=== PATIENT | male | born 1960 | race African-American/Black ===

== ENCOUNTER 2017-08-07 06:53 | Emergency (ER) | payer OTHER ==
[2017-08-07 07:18] VITALS: BMI 16.9
[2017-08-07] MEDS ORDERED: NITROSTAT SL PRN (07:18)
--- NOTE | 2017-08-07 07:26 | DR.CP ---
HPI - Time Seen Time seen: 07:20 - PCP Primary Care Physician: NFD - Complaint Chief Complaint Doctor Comments: This 56 y/o male presented to the ED via custody of the police department with complaint of chest pain just prior to coming. He reports that the pain is sharp 10/10, non radiating, no diaphoresis and positive shortness of breath. He denies a history of cardiopulmonary disease ,negative history of hypertension or cigarette use. He admits to a history of dyspnea of six months. He has a history of kidney disease colostomy for thriry years. Chief Complaint:: PT. C/O CHEST PAIN THAT BEGAN AFTER HE ATE BREAKFAST THIS MORNING. PAIN HAS BEEN CONTINUOUS SINCE ONSET AND PT. DESCRIBES PAIN "IT FEELS LIKE MY CHEST IS GOING TO POP OPEN." PT. ALSO C/O SHORTNESS OF BREATH. PT. IS FROM THE [facility]. - Source History Provided: Patient, EMS, Other - Mode of Arrival Mode of Arrival: EMS - Timing Onset of Chief Complaint: 08/07/17 PMH - PMH Past Medical History: Yes Past Medical History: Renal Disease Past Surgical History: Yes Surgical History: Other Past Surgical History Comment: UROSTOMY - Family History History of Family Medical Conditions: No - Social History Does patient currently use any type of tobacco product: No Have you used tobacco products in the last 12 months: No Type of Tobacco Use: None Does any household member use tobacco: No Alcohol Use: None Do you use any recreational Drugs:: No Lives Where: [facility] - infectious screening In the last 2 months have you had wt loss of >10#?: NO Have you had fever, night sweats or hemotysis?: No Have you traveled outside the country in the last 6 months?: No Isolation: Standard ROS - Review of Systems Constitutional: negative: Diaphoresis Eyes: No Symptoms Reported ENTM: No Symptoms Reported, See HPI Respiratoy: No Symptoms Reported Cardiovascular: No Symptoms Reported Gastrointestinal/Abdominal: No Symptoms Reported Genitourinary: Other (colostomy) Neurological: No Symptoms Reported Musculoskeletal: No Symptoms Reported Integumentary: No Symptoms Reported Hematologic/Lymphatic: No Symptoms Reported Endocrine: No Symptoms Reported Psychiatric: No Symptoms Reported All Other Systems: Reviewed and Negative PE - Vitals Vitals: Temperature 97.5 F Pulse Rate [Apical] 87 Pulse Rate 107 Respiratory Rate 20 Blood Pressure [Right Arm] 141/87 Blood Pressure 149/95 O2 Sat by Pulse Oximetry 97 - General Limitations: No Limitations General Appearance: Alert, In No Apparent Distress - Head Head Exam: Normal Inspection, Atraumatic - Eyes Eye exam: Normal Appearance, PERRL, EOMI - ENT ENT Exam: Normal Exam - Chest Chest Inspection: Normal Inspection - Respiratory Respiratory Exam: Normal Lung Sounds Bilat Respiratory Exam: Bilateral Clear to Auscultation - Cardiovascular Cardiovascular Exam: Regular Rate Pulse: Normal, Radial, Femoral Edema: Normal - Abdominal Exam Abdominal Exam: Normal Inspection, Normal Bowel Sounds Abdominal Tenderness: negative: RUQ, RLQ (colostomy LLQ), LUQ, LLQ, Epigastrium , Suprapubic, Diffuse, Mild, Moderate, Severe, Other - Extremities Extremities Exam: Normal Inspection, Full ROM - Back Back Exam: Normal Inspection, Full ROM - Neurologic Neurological Exam: Alert, Oriented X3, CN II-XII Intact - Psychiatric Psychiatric Exam: Normal Affect, Normal Mood - Skin Skin Exam: Warm, Dry, Intact ROR - Labs Reviewed Result Diagrams: 08/07/17 07:30 08/07/17 07:30 Laboratory: WBC 5.5 X10^3/uL (3.6-10.0) 08/07/17 07:30 RBC 4.57 X10^6/uL (4.7-6.0) L 08/07/17 07:30 Hgb 13.0 g/dL (13.5-18.0) L 08/07/17 07:30 Hct 39.7 % (42.0-54.0) L 08/07/17 07:30 MCV 86.9 fL (80.0-100.0) 08/07/17 07:30 MCH 28.5 pg (27.0-34.0) 08/07/17 07:30 MCHC 32.8 g/dL (33.0-35.0) L 08/07/17 07:30 RDW 15.4 % (11.6-16.5) 08/07/17 07:30 Plt Count 176 X10^3/uL (150.0-450.0) 08/07/17 07:30 MPV 9.2 fL (7.4-11.0) 08/07/17 07:30 Neut % 55.7 % (42.0-75.0) 08/07/17 07:30 Lymph % 24.5 % (21.0-51.0) 08/07/17 07:30 Z[place]ata % 10.0 % (0.0-13.0) 08/07/17 07:30 Eos % 8.2 % (0.9-2.9) H 08/07/17 07:30 Baso % 1.6 % (0.2-1.0) H 08/07/17 07:30 Neut # 3.1 x10^3/uL (2.2-4.8) 08/07/17 07:30 Lymph # 1.4 X10^3/uL (1.3-2.9) 08/07/17 07:30 [place] # 0.6 x10^3/uL (0.3-0.8) 08/07/17 07:30 Eos # 0.5 x10^3/uL (0.0-0.2) H 08/07/17 07:30 Baso # 0.1 X10^3/uL (0.0-0.1) 08/07/17 07:30 Absolute Nucleated RBC 0.1 /100WBC 08/07/17 07:30 INR Target Range - 08/07/17 07:30 INR 1.08 (0.8-1.3) 08/07/17 07:30 PTT 29.3 SECONDS (22.9-36.5) 08/07/17 07:30 PTT Comment - 08/07/17 07:30 Sodium 140 mmol/L (136-145) 08/07/17 07:30 Corrected Sodium 140 mmol/L (136-145) 08/07/17 07:30 Potassium 4.7 mmol/L (3.5-5.1) 08/07/17 07:30 Chloride 111 mmol/L (98-107) H 08/07/17 07:30 Carbon Dioxide 16.4 mmol/L (21-32) L 08/07/17 07:30 BUN 59 mg/dL (7-18) H 08/07/17 07:30 Creatinine 2.99 mg/dL (0.70-1.30) H 08/07/17 07:30 Est GFR (MDRD) Af Amer 28 (>60) L 08/07/17 07:30 Est GFR (MDRD) Non-Af 23 (>60) L 08/07/17 07:30 Glucose 120 mg/dL (65-99) H 08/07/17 07:30 Calcium 8.6 mg/dL (8.5-10.1) 08/07/17 07:30 Corrected Calcium TNP 08/07/17 07:30 Magnesium 2.4 mg/dL (1.7-2.9) 08/07/17 07:30 Total Bilirubin 0.10 mg/dL (0.2-1.0) L 08/07/17 07:30 AST 19 Units/L (15-37) 08/07/17 07:30 ALT 20 Units/L (12-78) 08/07/17 07:30 Alkaline Phosphatase 166 Units/L (46-116) H 08/07/17 07:30 Creatine Kinase 56 Units/L (39-308) 08/07/17 07:30 CK-MB (CK-2) < 1.0 ng/mL (0-4.0) 08/07/17 07:30 CK/CKMB % Calc 1.8 % (<4) 08/07/17 07:30 Troponin I < 0.02 ng/mL (0-1.5) 08/07/17 07:30 B-Natriuretic Peptide 21.9 pg/mL (0-79) 08/07/17 07:30 Total Protein 8.3 g/dL (6.4-8.2) H 08/07/17 07:30 Albumin 3.6 g/dL (3.4-5.0) 08/07/17 07:30 Globulin 4.7 g/dL (2.5-4.5) H 08/07/17 07:30 Albumin/Globulin Ratio 0.8 Ratio (1.1-2.1) L 08/07/17 07:30 - XRAY XRAY Interpreted by: Radiologist (Chest: The heart is within normal limits in size. The kiran are normal. The lungs are well inflated and free of acute infiltrates. No pleural effusions are identified. There is a benign calcified granulomz in the left lower lobe. Impression: No acute findigns. Old granulomatous disease.) - Diagnosis Discharge Problem: Chest pain Qualifiers: Chest pain type: unspecified Qualified Code(s): R07.9 - Chest pain, unspecified Chronic renal failure Qualifiers: Chronic kidney disease stage: stage 2 (mild) Qualified Code(s): N18.2 - Chronic kidney disease, stage 2 (mild) - Discharge Plan Condition: Stable - Follow ups/Referrals Follow ups/Referrals: NFD,None [Primary Care Provider] - 3 days - Instructions
--- NOTE | 2017-08-07 07:34 | RAD ---
HISTORY: Chest pain Study: Chest AP portable Comparison: None Findings: The heart is within normal limits in size. The kiran are normal. The lungs are well inflated and free of acute infiltrates. No pleural effusions are identified. There is a benign calcified granuloma in t he left lower lobe. IMPRESSION: No acute findings Old granulomatous disease Reported By:
[2017-08-07 07:44] LABS: BASOPHILS # (AUTO) 0.1 X10^3/uL (0.0-0.1); BASOPHILS % (AUTO) 1.6 % (0.2-1.0); EOSINOPHILS # (AUTO) 0.5 x10^3/uL (0.0-0.2); EOSINOPHILS % (AUTO) 8.2 % (0.9-2.9); HEMATOCRIT 39.7 % (42.0-54.0); LYMPHOCYTES # (AUTO) 1.4 X10^3/uL (1.3-2.9); LYMPHOCYTES % (AUTO) 24.5 % (21.0-51.0); MEAN CORPUSCULAR HEMOGLOBIN 28.5 pg (27.0-34.0); MEAN CORPUSCULAR HGB CONC 32.8 g/dL (33.0-35.0); MEAN CORPUSCULAR VOLUME 86.9 fL (80.0-100.0); MEAN PLATELET VOLUME 9.2 fL (7.4-11.0); MONOCYTES # (AUTO) 0.6 x10^3/uL (0.3-0.8); NEUTROPHILS # (AUTO) 3.1 x10^3/uL (2.2-4.8); NEUTROPHILS % (AUTO) 55.7 % (42.0-75.0); PLATELET COUNT 176 X10^3/uL (150.0-450.0); RED BLOOD COUNT 4.57 X10^6/uL (4.7-6.0); RED CELL DISTRIBUTION WIDTH 15.4 % (11.6-16.5); WHITE BLOOD COUNT 5.5 X10^3/uL (3.6-10.0)
[2017-08-07 07:55] LABS: ALANINE AMINOTRANSFERASE 20 Units/L (12-78); ALBUMIN 3.6 g/dL (3.4-5.0); ALKALINE PHOSPHATASE 166 Units/L (46-116); ASPARTATE AMINO TRANSFERASE 19 Units/L (15-37); BLOOD UREA NITROGEN 59 mg/dL (7-18); CALCIUM 8.6 mg/dL (8.5-10.1); CARBON DIOXIDE 16.4 mmol/L (21-32); CHLORIDE 111 mmol/L (98-107); COR NA(FOR HYPERGLY) 140 mmol/L (136-145); CREATININE 2.99 mg/dL (0.70-1.30); MAGNESIUM 2.4 mg/dL (1.7-2.9); SODIUM 140 mmol/L (136-145); TOTAL PROTEIN 8.3 g/dL (6.4-8.2); eGFR BLACK RACES 28 (>60); eGFR NON BLACK RACES 23 (>60)
[2017-08-07] MEDS ORDERED: ASPIRIN PO SCH (08:00)
[2017-08-07 08:06] LABS: B-TYPE NATRIURETIC PEPTIDE 21.9 pg/mL (0-79)
[2017-08-07 08:10] LABS: CKMB % 1.8 % (<4); CREATINE KINASE 56 Units/L (39-308); CREATINE KINASE MB < 1.0 ng/mL (0-4.0); TROPONIN I < 0.02 ng/mL (0-1.5)
[2017-08-07 08:25] VITALS: BP 143/96
== END 2017-08-07 08:33 | disposition home or self-care (01) ==
LOC: ER 06:53
DX: R07.89 Other chest pain (principal); N18.2 Chronic kidney disease, stage 2 (mild); D71 Functional disorders of polymorphonuclear neutrophils
CPT/HCPCS: 36415; 71045; 80053; 82550; 82553; 83735; 83880; 84484; 85025; 85378; 85610; 85730; 93005; 93010; 96365; 96374; 99283